=== PATIENT | female | born 1975 | race Caucasian/White ===

== ENCOUNTER 2022-01-13 13:02 | Emergency (ER) | payer SELFPAY ==
[~2022-01-13] VITALS: Ht 165.1 cm; Wt 97.1 kg
[2022-01-13 13:04] VITALS: BP 143/73
[2022-01-13] MEDS ORDERED: NAPR-54 PO (13:28)
[2022-01-13] MEDS ORDERED: AZIT250T4 PO (13:28)
--- NOTE | 2022-01-13 13:49 | NUR ---
PT SEEN AND D/C BY MICHELLE DOBBS, NO NURSING INTERVENTIONS PROVIDED
--- NOTE | 2022-01-13 13:50 | NUR ---
Patient discharged with v/s stable. Written and verbal after care instructions ABOUT UPPER RESPIRATORY INFECTION given and explained. Patient alert, oriented and verbalized understanding of instructions. Ambulatory with steady gait. All questions addressed prior to discharge. ID band removed. Patient advised to follow up with PMD. Rx of ZITHROMAX, AND NAPROXEN given. Patient educated on indication of medication including possible reaction and side effects. Opportunity to ask questions provided and answered.
== END 2022-01-13 13:50 | disposition home or self-care (01) ==
LOC: MED 13:02
DX: J06.9 Acute upper respiratory infection, unspecified (principal); E11.9 Type 2 diabetes mellitus without complications; E03.9 Hypothyroidism, unspecified; E78.5 Hyperlipidemia, unspecified; Z98.890 Other specified postprocedural states
CPT/HCPCS: 99283

== ENCOUNTER 2022-03-30 17:07 | Emergency (ER) | payer MEDICAID ==
[~2022-03-30] VITALS: Ht 165.1 cm; Wt 98.9 kg
[~2022-03-30 17:07] MED LIST: AZIT250T4 PO; NAPR-54 PO
[2022-03-30 17:22] VITALS: BP 125/73
[2022-03-30] MEDS ORDERED: ONDANSETRON 4 MG/2 ML VIAL IVP ONE (17:35)
[2022-03-30] MEDS ORDERED: MORPHINE SULFATE 4 MG/ML SYR IVP ONE (17:35)
[2022-03-30] MEDS ORDERED: NACL 0.9% 1,000 ML IV ONE (17:35)
--- NOTE | 2022-03-30 17:40 | NUR ---
47 Y/O FEMALE BIB SELF C/O RLQ PAIN X3 DAYS. PAIN RATED 4/10. PT STATES SHE WAS REFERRED BY HER PCP DUE TO INCREASED WBC/POSSIBLE APPENDICITIS. REBOUND TENDERNESS. PMH: HYPOTHYROIDISM,HDL, DM MEDS: LETHYROXINE, LISINOPRIL,ATROVASTATIN, METFORMIN NKDA
[2022-03-30 18:06] LABS: BASOPHILS # (AUTO) 0.1 K/uL (0.00-0.22); BASOPHILS % (AUTO) 0.8 % (0.0-2.0); EOSINOPHILS # (AUTO) 0.2 K/uL (0-0.4); EOSINOPHILS % (AUTO) 1.4 % (0.0-4.0); HEMATOCRIT 36.3 % (36-48); HEMOGLOBIN 11.6 g/dL (12.0-16.0); LYMPHOCYTES % (AUTO) 23.1 % (20.5-51.1); MEAN CORPUSCULAR HEMOGLOBIN 26 pg (27-31); MEAN CORPUSCULAR HGB CONC 32 g/dL (33-37); MEAN CORPUSCULAR VOLUME 81.5 fL (80-94); MONOCYTES # (AUTO) 0.8 K/uL (0.8-1.0); MONOCYTES % (AUTO) 6.5 % (1.7-9.3); NEUTROPHILS # (AUTO) 8.9 K/uL (1.8-7.7); NEUTROPHILS % (AUTO) 68.2 % (42.2-75.2); PLATELET COUNT (AUTO) 373 K/uL (140-450); RED BLOOD CELL COUNT(AUTO) 4.46 MIL/uL (4.20-5.40); RED CELL DISTRIBUTION WIDTH 16.6 % (11.6-13.7)
[2022-03-30 18:27] LABS: ALBUMIN 3.3 g/dL (3.4-5.0); ANION GAP 8.8 (8-16); CARBON DIOXIDE 28.4 mmol/L (21-32); CREATININE 0.8 mg/dL (0.6-1.3); POTASSIUM 4.2 mmol/L (3.5-5.1); TOTAL BILIRUBIN 0.2 mg/dL (0.0-1.0)
--- NOTE | 2022-03-30 19:05 | NUR ---
PT AMBULATED TO BATHROOM FOR URINE COLLECTION
--- NOTE | 2022-03-30 19:20 | NUR ---
ENDORSED BEDSIDE REPORT TO CHARLIE TOMLINSON RN FOR CONTINUITY OF CARE. PT SUPINE IN THE BED. VSS, NO S/S ACUTE DISTRESS AT THIS TIME.
--- NOTE | 2022-03-30 20:00 | NUR ---
RESTING COMFORTABLY AT PRESENT. WARM BLANKET GIVEN
[2022-03-30] MEDS ORDERED: KETOROLAC 30 MG/ML VIAL IVP ONE (20:40)
[2022-03-30] MEDS ORDERED: NAPR-54 PO (21:44)
[2022-03-30 22:10] VITALS: BP 124/68
== END 2022-03-30 22:10 | disposition home or self-care (01) ==
LOC: MED 17:07
DX: N83.209 Unspecified ovarian cyst, unspecified side (principal); R10.31 Right lower quadrant pain; E11.9 Type 2 diabetes mellitus without complications; E03.9 Hypothyroidism, unspecified; Z98.890 Other specified postprocedural states
CPT/HCPCS: 36415; 74177; 76856; 80053; 81002; 81025; 85025; 93976; 96361; 96374; 96375; 99285; J1885; J2270; J2405; J7030; Q0092; Q9967

== ENCOUNTER 2022-10-02 14:09 | Emergency (ER) | payer MEDICAID ==
[~2022-10-02] VITALS: Ht 162.6 cm; Wt 99.3 kg
[2022-10-02 14:34] VITALS: BP 127/79
--- NOTE | 2022-10-02 14:53 | NUR ---
PT TAKEN TO XRAY
--- NOTE | 2022-10-02 15:00 | NUR ---
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
[2022-10-02] MEDS ORDERED: IBUPROFEN 600 MG TAB PO ONE (15:35)
--- NOTE | 2022-10-02 15:40 | NUR ---
Patient discharged with v/s stable. Written and verbal after care instructions ABOUT ANKLE SPRAIN given and explained. Patient alert, oriented and verbalized understanding of instructions. Ambulatory with steady gait. All questions addressed prior to discharge. ID band removed. Patient advised to follow up with PMD. Rx of MOTRIN given. Patient educated on indication of medication including possible reaction and side effects. Opportunity to ask questions provided and answered.
[2022-10-02] MEDS ORDERED: IBUP-2213 PO (15:42)
--- NOTE | 2022-10-02 15:45 | NUR ---
stirrup applied to r ankle. pt given crutches and pt returned safe demonstration.
--- NOTE | 2022-10-02 17:00 | NUR ---
Dago marc in EDM - 10/02/22 at 1922 by SHAKEEL 47/F PRESENTS TO ED WITH C/O ACUTE RIGHT FOOT PAIN X3 DAYS S/P "TAKING A WRONG STEP." PATIENT STATES PAIN HAS BEEN WORSENING WITH AMBULATION.
--- NOTE | 2022-10-02 17:34 | NUR ---
Dago marc in EDM - 10/02/22 at 1735 by SHAKEEL 47/F PRESENTS TO ED WITH C/O ACUTE RIGHT FOOT PAIN X3 DAYS S/P "TAKING A WRONG STEP." PATIENT STATES PAIN HAS BEEN WORSENING WITH AMBULATION.
--- NOTE | 2022-10-02 17:35 | NUR ---
Note monico in EDM - 10/02/22 at 1922 by SHAKEEL Patient discharged with v/s stable. Written and verbal after care instructions given and explained. Patient alert, oriented and verbalized understanding of instructions. Ambulatory with steady gait. All questions addressed prior to discharge. ID band removed. Patient advised to follow up with PMD. Rx of IBUPROFEN given. Patient educated on indication of medication including possible reaction and side effects. Opportunity to ask questions provided and answered.
== END 2022-10-02 15:40 | disposition home or self-care (01) ==
LOC: MED 14:09
DX: S93.401A Sprain of unspecified ligament of right ankle, initial encounter (principal); E03.9 Hypothyroidism, unspecified; E11.9 Type 2 diabetes mellitus without complications; Z79.4 Long term (current) use of insulin; Z79.899 Other long term (current) drug therapy; X58.XXXA Exposure to other specified factors, initial encounter; Y93.89 Activity, other specified; Y92.89 Other specified places as the place of occurrence of the external cause; Y99.8 Other external cause status
CPT/HCPCS: 73610; 73630; 99284

== ENCOUNTER 2024-01-04 12:50 | Emergency (ER) | payer MEDICAID, OTHER ==
[~2024-01-04] VITALS: Ht 167.6 cm; Wt 98.4 kg
[~2024-01-04 12:50] MED LIST changes: +IBUP-2213 PO
[2024-01-04 13:06] VITALS: BP 136/89; PULSE 83; RESP 15; TEMP 98.2; O2SAT 98
[2024-01-04] MEDS: GABAPENTIN 300 MG CAP PO ONE (13:50)
[2024-01-04] MEDS: ACETAMINOPHEN 325 MG TAB PO ONE (14:09)
[2024-01-04] MEDS ORDERED: DIPH25TA53 PO (14:52)
[2024-01-04 15:14] VITALS: O2SAT 98
== END 2024-01-04 15:00 | disposition home or self-care (01) ==
LOC: MED 12:50
DX: S91.032A Puncture wound without foreign body, left ankle, initial encounter (principal); E16.2 Hypoglycemia, unspecified; I10 Essential (primary) hypertension; E03.9 Hypothyroidism, unspecified; Z79.899 Other long term (current) drug therapy; X58.XXXA Exposure to other specified factors, initial encounter; Y93.89 Activity, other specified; Y92.89 Other specified places as the place of occurrence of the external cause; Y99.8 Other external cause status
CPT/HCPCS: 99284; Q0163

== ENCOUNTER 2024-05-07 21:37 | Emergency (ER) | payer MEDICAID, OTHER ==
[~2024-05-07] VITALS: Ht 167.6 cm; Wt 104.3 kg
[~2024-05-07 21:37] MED LIST changes: +DIPH25TA53 PO; +NAPR-337 PO; -NAPR-54 PO
[2024-05-07 22:07] VITALS: BP 120/87; PULSE 90; RESP 16; TEMP 98; O2SAT 97
[2024-05-07] MEDS ORDERED: NAPR-337 PO (23:51)
== END 2024-05-07 23:54 | disposition home or self-care (01) ==
LOC: MED 21:37
DX: S63.617A Unspecified sprain of left little finger, initial encounter (principal); I10 Essential (primary) hypertension; E03.9 Hypothyroidism, unspecified; Z79.1 Long term (current) use of non-steroidal anti-inflammatories (NSAID); Z79.2 Long term (current) use of antibiotics; Z79.899 Other long term (current) drug therapy; X58.XXXA Exposure to other specified factors, initial encounter; Y93.89 Activity, other specified; Y92.89 Other specified places as the place of occurrence of the external cause; Y99.8 Other external cause status
CPT/HCPCS: 73140; 99283